=== PATIENT | male | born 1955 | race Caucasian/White ===

== ENCOUNTER → 2019-02-28 | Outpatient (CLI) | payer MEDICARE ==
[~2019-02-28] MED LIST: ASPI81TA45 PO; ATOR40TA78 PO; CLOP75TA PO; METO1TAB6 PO
[2019-02-28 09:58] LABS: BASOPHILS # (AUTO) 0.03 x10^3/uL (0-0.1); BASOPHILS % (AUTO) 1 % (0-1); EOSINOPHILS # (AUTO) 0.11 x10^3/uL (0-0.4); EOSINOPHILS % (AUTO) 2 % (1-7); LYMPHOCYTES # (AUTO) 1.59 x10^3/uL (1-3.4); LYMPHOCYTES % (AUTO) 23 % (22-44); MD NO; MEAN CORPUSCULAR HEMOGLOBIN 29.9 pg (27.5-34.5); MEAN CORPUSCULAR HGB CONC 32.2 g/dL (33.2-36.2); MEAN PLATELET VOLUME 7.1 fL (7.4-10.4); MONOCYTES # (AUTO) 0.62 x10^3/uL (0.2-0.8); MONOCYTES % (AUTO) 9 % (2-9); NEUTROPHILS # (AUTO) 4.57 x10^3/uL (1.8-6.8); NEUTROPHILS % (AUTO) 66 % (42-75); PLATELET COUNT 265 x10^3/uL (130-400); RED BLOOD COUNT 4.59 x10^6/uL (4.38-5.82); RED CELL DISTRIBUTION WIDTH 14.2 % (9.4-14.8)
[2019-02-28 10:15] LABS: INTERNATIONAL NORMALIZED RATIO 0.94 (0.93-1.1); PROTHROMBIN TIME 9.9 Seconds (9.6-11.5)
[2019-02-28 12:37] LABS: HEMOGLOBIN A1C 5.8 % (4.2-6.3)
[2019-02-28 16:57] LABS: ALANINE AMINOTRANSFERASE 31 U/L (12-78); ALBUMIN 3.3 g/dL (3.4-5.0); ANION GAP 7 mmol/L (5-15); CHLORIDE 111 mmol/L (98-107); CREATININE 1.16 mg/dL (0.7-1.3)
[2019-02-28 16:59] LABS: ALKALINE PHOSPHATASE 72 U/L (45-117); BILIRUBIN,TOTAL 0.3 mg/dL (0.2-1.0); TOTAL PROTEIN 7.5 g/dL (6.4-8.2)
== END | disposition home or self-care (01) ==
LOC: STAR 08:26
PROVIDERS: ATTEND Orthopaedic Surgery
DX: Z01.818 Encounter for other preprocedural examination (principal); M17.12 Unilateral primary osteoarthritis, left knee
CPT/HCPCS: 36415; 80053; 83036; 85025; 85610; 85730; 87081; 87147; 87806; 93005; G0475

== ENCOUNTER 2019-03-07 10:29 | Observation (INO) | payer MEDICARE ==
[~2019-03-07] VITALS: Ht 180.3 cm; Wt 125.0 kg
[~2019-03-07 10:29] MED LIST changes: +EPINEPHRINE 1 MG/ML, 1ML ONE; +KETOROLAC 60 MG/2 ML ONE; +ROPIvacaine/PF 0.2%, 20 ML ONE; +SODIUM CHLORIDE 0.9% 50 ML ONE; +TRANEXAMIC ACID 100 MG/ML, 10ML ONE
[2019-03-07] MEDS ORDERED: LACTATED RINGERS 1,000 ML IV SCH ×2 (10:44→10:47)
[2019-03-07] MEDS ORDERED: ACETAMINOPHEN 500 MG TABLET PO ONE (11:00)
[2019-03-07] MEDS ORDERED: GABAPENTIN 300 MG CAPSULE PO ONE (11:00)
[2019-03-07 11:05] VITALS: BP 117/81
[2019-03-07] MEDS: POTASSIUM CHLORIDE 20 MEQ in D5%-0.45% NACL 1,000 ML IV SCH (12:16)
[2019-03-07] MEDS ORDERED: DIPHENHYDRAMINE 25 MG CAPSULE PO PRN (12:30)
[2019-03-07] MEDS ORDERED: ONDANSETRON 2MG/ML, 2ML IV PRN ×3 (12:30→15:30)
[2019-03-07] MEDS ORDERED: DIPHENHYDRAMINE 50 MG/ML, 1ML IVPush PRN (12:30)
[2019-03-07] MEDS ORDERED: TRANEXAMIC ACID 1,000 MG in SODIUM CHLORIDE 0.9% 100 ML IVPB ONE (12:30)
[2019-03-07] MEDS ORDERED: ACETAMINOPHEN 650 MG/20.3 ML UDC PO PRN (12:30)
[2019-03-07] MEDS ORDERED: ONDANSETRON 4 MG TABLET PO PRN (12:30)
[2019-03-07] MEDS ORDERED: HYDROmorphone 2 MG/ML, 1ML IVPush PRN ×2 (12:30→15:30)
[2019-03-07] MEDS ORDERED: POLYETHYLENE GLYCOL 17 GM PACKET PO PRN (12:30)
[2019-03-07] MEDS ORDERED: PSYLLIUM PACKET PO PRN (12:30)
[2019-03-07] MEDS ORDERED: MAGNESIUM HYDROXIDE 8%, 30ML UDC PO PRN (12:30)
[2019-03-07] MEDS ORDERED: PROMETHAZINE 25 MG/ML, 1ML IM PRN (12:30)
[2019-03-07] MEDS ORDERED: ALUMINUM/MAG/SIMETHICONE 30 ML UDC PO PRN (12:30)
[2019-03-07] MEDS ORDERED: SENNA/DOCUSATE TABLET PO PRN (12:30)
[2019-03-07] MEDS ORDERED: FENTANYL PF 250 MCG/5ML ONE (12:45)
[2019-03-07] MEDS ORDERED: MIDAZOLAM 1 MG/ML, 2ML ONE (12:45)
[2019-03-07] MEDS ORDERED: PROPOFOL 10 MG/ML, 20ML ONE (12:46)
[2019-03-07] MEDS ORDERED: ONDANSETRON 2MG/ML, 2ML ONE (12:46)
[2019-03-07] MEDS ORDERED: SUCCINYLCHOLINE 20 MG/ML, 10ML ONE (12:46)
[2019-03-07] MEDS ORDERED: CEFAZOLIN 1,000 MG ONE (12:46)
[2019-03-07] MEDS ORDERED: DEXAMETHASONE 4 MG/ML, 1ML ONE (12:46)
[2019-03-07] MEDS ORDERED: OXYcodone 5 MG/5 ML ORAL.SOL UDC ONE (14:36)
[2019-03-07] MEDS ORDERED: HYDROmorphone 2 MG/ML, 1ML ONE (14:36)
[2019-03-07] MEDS ORDERED: FENTANYL PF 100 MCG/2ML ONE (14:36)
[2019-03-07] MEDS: HYDROmorphone 2 MG/ML, 1ML IVPush PRN ×4 (14:48→15:25)
[2019-03-07] MEDS ORDERED: LORazepam 2 MG/ML, 1ML IVPush PRN ×2 (15:00→15:30)
[2019-03-07] MEDS ORDERED: hydrALAzine 20 MG/ML, 1ML IV PRN (15:00)
[2019-03-07] MEDS ORDERED: MIDAZOLAM 1 MG/ML, 2ML IV PRN (15:00)
[2019-03-07] MEDS ORDERED: ALBUTEROL SULFATE 2.5 MG/3 ML NPPB PRN (15:00)
[2019-03-07] MEDS ORDERED: HALOPERIDOL 5 MG/ML IV PRN (15:00)
[2019-03-07] MEDS ORDERED: PROMETHAZINE 25 MG/ML, 1ML IV PRN (15:00)
[2019-03-07] MEDS ORDERED: FENTANYL PF 100 MCG/2ML IV PRN ×2 (15:00→15:30)
[2019-03-07] MEDS ORDERED: LABETALOL 5MG/ML, 20ML IV PRN (15:00)
[2019-03-07] MEDS ORDERED: MEPERIDINE/PF 25MG/0.5ML IVPush PRN ×2 (15:00→15:30)
[2019-03-07] MEDS ORDERED: EPHEDRINE 50 MG/ML, 1ML IVPush PRN (15:00)
[2019-03-07] MEDS ORDERED: OXYcodone 5 MG/5 ML ORAL.SOL UDC PO PRN ×2 (15:00→15:30)
[2019-03-07] MEDS ORDERED: ONDANSETRON ODT 8 MG PO PRN (15:00)
[2019-03-07] MEDS ORDERED: METOCLOPRAMIDE 5 MG/ML, 2ML IV PRN (15:30)
[2019-03-07] MEDS: KETOROLAC 30 MG/1 ML IV SCH (17:31)
[2019-03-07] MEDS: METOPROLOL TARTRATE 25 MG TABLET PO SCH (17:31)
[2019-03-07] MEDS: ASPIRIN 81 MG TABLET EC PO SCH (17:31)
[2019-03-07] MEDS: HYDROCHLOROTHIAZIDE 12.5 MG CAPSULE PO SCH (17:31)
[2019-03-07] MEDS ORDERED: CLOPIDOGREL 75 MG TABLET PO SCH (18:00)
[2019-03-07] MEDS: OXYcodone IR 5MG TABLET PO PRN (18:56)
[2019-03-07 20:30] VITALS: BP 123/78
[2019-03-07] MEDS ORDERED: ATORVASTATIN 40 MG TABLET PO SCH (21:00)
[2019-03-07] MEDS: DOCUSATE 100 MG CAPSULE PO SCH (21:07)
[2019-03-07] MEDS: CEFAZOLIN PMX 1GM/50ML 50 ML IVPB SCH (21:07)
[2019-03-08 00:26] VITALS: BP 119/73
[2019-03-08] MEDS: POTASSIUM CHLORIDE 20 MEQ in D5%-0.45% NACL 1,000 ML IV SCH ×2 (00:54→10:30)
[2019-03-08] MEDS: KETOROLAC 30 MG/1 ML IV SCH ×2 (00:55→08:27)
[2019-03-08 04:24] VITALS: BP 106/69
[2019-03-08] MEDS: CEFAZOLIN PMX 1GM/50ML 50 ML IVPB SCH (05:08)
[2019-03-08] MEDS ORDERED: DEXAMETHASONE 4 MG/ML, 1ML IVPush ONE (06:00)
[2019-03-08] MEDS: OXYcodone IR 5MG TABLET PO PRN (06:07)
[2019-03-08] MEDS: METOPROLOL TARTRATE 25 MG TABLET PO SCH (07:07)
[2019-03-08] MEDS: HYDROCHLOROTHIAZIDE 12.5 MG CAPSULE PO SCH (07:07)
[2019-03-08 07:10] VITALS: BP 100/60
[2019-03-08] MEDS: DOCUSATE 100 MG CAPSULE PO SCH (08:26)
[2019-03-08] MEDS: ASPIRIN 81 MG TABLET EC PO SCH (08:27)
[2019-03-08] MEDS ORDERED: TAMSULOSIN 0.4 MG CAP.ER.24H PO SCH (09:00)
[2019-03-08] MEDS ORDERED: CLOPIDOGREL 75 MG TABLET PO SCH (18:00)
== END 2019-03-08 15:16 | disposition home or self-care (01) ==
LOC: OUT 10:29 → ORIP 12:16 → 4NOR 16:10 → DCLOUNGE 03-08 15:05
PROVIDERS: ADMIT Orthopaedic Surgery; ATTEND Orthopaedic Surgery
DX: M17.12 Unilateral primary osteoarthritis, left knee (principal); M17.11 Unilateral primary osteoarthritis, right knee; I25.2 Old myocardial infarction; E78.5 Hyperlipidemia, unspecified; Z95.1 Presence of aortocoronary bypass graft; Z79.82 Long term (current) use of aspirin; Z79.899 Other long term (current) drug therapy
CPT/HCPCS: 27447; 36415; 73560; 85014; 85018; 96365; 96366; 96375; 96376; 97110; 97116; 97161; 97530; C1713; C1776; G0378; J0171; J0330; J0690; J1100; J1170; J1885; J2250; J2405; J2704; J2795; J3010; J3480; J7120